=== PATIENT | male | born 1995 | race Two or more races ===

== ENCOUNTER 2022-04-27 16:00 | Emergency (ER) | payer BC ==
[~2022-04-27] VITALS: Ht 175.3 cm; Wt 81.6 kg
[2022-04-27] MEDS ORDERED: ALBUTEROL SULFATE 2.5 MG/3 ML NEBU NEB ONE (16:45)
[2022-04-27] MEDS ORDERED: IPRATROPIUM BROMIDE 0.5 MG/2.5 ML NEBU NEB ONE (16:45)
[2022-04-27] MEDS ORDERED: ALBUTEROL SULFATE 2.5 MG/3 ML NEBU ONE (16:47)
[2022-04-27] MEDS ORDERED: IPRATROPIUM BROMIDE 0.5 MG/2.5 ML NEBU ONE (16:47)
[2022-04-27 18:47] VITALS: BP 131/91
== END 2022-04-27 18:18 | disposition home or self-care (01) ==
LOC: ER 16:00
DX: R06.02 Shortness of breath (principal); J45.909 Unspecified asthma, uncomplicated
CPT/HCPCS: 71045; 93005; A4663; J3590

== ENCOUNTER 2022-05-09 08:05 | Outpatient (CLI) | payer BC ==
[2022-05-09 08:39] LABS: HEMATOCRIT 46.6 % (36.7-47.1); MEAN CORPUSCULAR HEMOGLOBIN 30.1 uug (23.8-33.4); MEAN CORPUSCULAR VOLUME 86.2 fL (73.0-96.2); PLATELET COUNT (AUTO) 321 K/uL (152-348)
[2022-05-09 08:42] LABS: *BILIRUBIN,URIN NEGATIVE (NEGATIVE); *BLOOD, URINE NEGATIVE (NEGATIVE); *CLARITY,URINE CLEAR (CLEAR); *COLOR,URINE YELLOW (YELLOW); *KETONES,URINE NEGATIVE (NEGATIVE); *UROBILINOGEN,URINE 0.2 E.U./dl (NORMAL); LEUKOCYTE ESTERASE ,URINE NEGATIVE (NEGATIVE); NITRITE, URINE NEGATIVE (NEGATIVE); UGLUCOSE NEGATIVE (NEGATIVE)
[2022-05-09 09:03] LABS: THYROID STIMULATING HORMONE 0.76 mIU/mL (0.358-3.740)
[2022-05-09 09:06] LABS: BILIRUBIN,TOTAL 0.7 mg/dL (0.2-1.0); CREATININE 0.8 mg/dL (0.6-1.3); MAGNESIUM 1.9 mg/dL (1.8-2.4); POTASSIUM 4.1 mmol/L (3.5-5.1); TOTAL PROTEIN, SERUM 8.2 g/dL (6.4-8.2)
== END 2022-05-09 23:59 | disposition home or self-care (01) ==
LOC: LAB 08:05
PROVIDERS: ATTEND Internal Medicine
DX: Z00.00 Encounter for general adult medical examination without abnormal findings (principal); J45.998 Other asthma; R79.89 Other specified abnormal findings of blood chemistry; I47.1 Supraventricular tachycardia; E55.9 Vitamin D deficiency, unspecified
CPT/HCPCS: 36415; 82306; 83550; 83735; 84443; 84480; 85025; 85651; 86140